=== PATIENT | female | born 1995 | race Hispanic/Latino ===

== ENCOUNTER 2019-09-08 17:37 | Emergency (ER) | payer OTHER, SELFPAY ==
[2019-09-08 17:43] VITALS: BP 158/87; PULSE 76; RESP 18; TEMP 36.9; O2SAT 98
[2019-09-08 18:13] LABS: INR 1.1 (0.9-1.3); Prothrombin Time 12.1 SECONDS (10.1-12.7)
[2019-09-08 18:16] LABS: PTT Partial Thromboplastin Tim 33 SECONDS (26.4-36.2)
[2019-09-08 18:19] LABS: Alanine Aminotransferase 11 IU/L (<35); Albumin 4.5 g/dL (3.5-5.0); Albumin Globulin Ratio 1.2 (1.0-2.8); Alkaline Phosphatase 87 U/L (38-126); Aspartate Aminotransferase 25 IU/L (14-36); Bilirubin Total 0.2 mg/dL (0.2-1.3); Blood Urea Nitrogen 13 mg/dL (7-17); Calcium 9.5 mg/dL (8.4-10.2); Carbon Dioxide 27 mmol/L (22-32); Chloride 103 mmol/L (98-107); Estimated Glomerular Filt Rate > 60.0 mL/min (>60); Globulin 3.9 g/dL (1.7-4.1); Glucose 88 mg/dL (70-100); HEMOLYSIS < 15 (0-50); Lipase 67 U/L (23-300); Potassium 3.7 mmol/L (3.4-5.1); Sodium 139 mmol/L (137-145); Total Protein 8.4 g/dL (6.3-8.2)
--- NOTE | 2019-09-08 18:23 | ED.GENADULT ---
HPI - General Adult General Chief complaint: Abdominal Pain Stated complaint: abd pain Time Seen by Provider: 09/08/19 18:06 Source: patient Mode of arrival: Ambulatory Limitations: no limitations History of Present Illness HPI narrative: 23-year-old female here for evaluation of 3 days of epigastric abdominal pain. Patient states that it started when she was eating. It has been consistent since then. Difficult for her to describe the character of the pain. No change in bowel habits. No urinary changes. No vomiting. No nausea. Has not tried anything for the symptoms prior to arrival. Not worse with movement. Potentially worse with palpation according to the patient. No fevers. Has never had any symptoms like this in the past. Related Data Allergies Allergy/AdvReac Type Severity Reaction Status Date / Time strawberry Allergy Intermediate Hives Verified 09/08/19 17:50 Review of Systems Constitutional Constitutional: Denies fever(s) and Denies headache(s) ENT Ears, Nose, Mouth, and Throat: Denies headache(s) Cardiovascular Cardiovascular: Denies chest pain and Denies dyspnea Respiratory Respiratory: Denies dyspnea Gastrointestinal Gastrointestinal: Reports abdominal pain, Denies change in stool character, Denies nausea and Denies vomiting Genitourinary Genitourinary: Denies dysuria Musculoskeletal Musculoskeletal: Denies myalgias and Denies arthralgias Integumentary/Breasts Skin/Breast: Denies lesions and Denies rash Neurologic Neurologic: Denies behavioral changes and Denies headache(s) Psychiatric Psychiatric: Denies behavioral changes Hematologic/Lymphatic Hematologic/Lymphatic: Denies easy bleeding and Denies easy bruising Patient History Medical History Healthy adult (Acute) tobacco type: smokeless tobacco alcohol intake frequency: 0-2 drinks per day Substance Use Type: does not use Exam Initial Vital Signs Initial Vital Signs: Vital Signs Temperature 98.4 F 09/08/19 17:43 Pulse Rate 76 09/08/19 17:43 Respiratory Rate 18 09/08/19 17:43 Blood Pressure 158/87 H 09/08/19 17:43 Pulse Oximetry 98 09/08/19 17:43 Const General: cooperative and comfortable Limitations: mental status not altered HENMT Head: normal to inspection and normocephalic Resp Effort & Inspection: normal respiratory effort Auscultation: clear to auscultation bilaterally Cardio Rate: regular rate Rhythm: regular rhythm GI Inspection: non-distended Palpation: soft, No firm and tender (Epigastric) Back/Spine/Pelvis Back: No CVA tenderness Skin Lesions: no lesions Rashes: no rashes Neuro General: alert and awake Cognition: normal cognition Speech: speech normal Extrem General: normal to inspection and capillary refill normal Psych Appearance: grossly normal Course Orders Ordered: ED Orders 09/08/19 17:05 Complete Blood Count AUTO DIFF Stat Comprehensive Metabolic Panel Stat Lipase Stat Partial Thromboplastin Time Stat Prothrombin Time INR Stat Discontinued Medications Al Hydrox/Mg Hydrox/Simethicone 20 ml/ Lidocaine HCl 15 ml 0 ml PO NOW ONE Stop: 09/08/19 18:23 Last Admin: 09/08/19 18:45 Dose: 30 ml Documented by: SUNITA Vital Signs Vital signs: Vital Signs - 8 hr 09/08/19 17:43 Temperature 98.4 F Pulse Rate 76 Respiratory Rate 18 Blood Pressure 158/87 H Pulse Oximetry 98 Medical Decision Making Lab Data Lab results reviewed: Yes I reviewed the patient's lab results. Result diagrams: 09/08/19 17:05 09/08/19 17:05 Labs: Lab Results 09/08/19 09/08/19 09/08/19 Range/Units 17:05 17:05 17:05 WBC 10.3 (4.5-11.0) X10^3/uL RBC 4.53 (4.0-5.2) X10^6/uL Hgb 13.7 (12.0-16.0) g/dL Hct 39.8 (36-46) % MCV 87.8 (80-100) fL MCH 30.2 (26-34) PG MCHC 34.4 (30-36) % RDW 12.8 (11.6-14.8) % Plt Count 266 (150-400) X10^3/uL Neut % (Auto) 59.2 (50-75) % Lymph % (Auto) 32.3 (25-40) % Brewster % (Auto) 6.2 (3-14) % Eos % (Auto) 1.7 L (2-4) % Baso % (Auto) 0.6 (0-2) % Neut # (Auto) 6100 (2289-6178) /uL Lymph # (Auto) 3300 (0902-2789) /uL Brewster # (Auto) 600 (0-900) /uL Eos # (Auto) 200 (0-450) /uL Baso # (Auto) 100 (0-100) /uL PT 12.1 (10.1-12.7) SECONDS INR 1.1 (0.9-1.3) APTT 33 (26.4-36.2) SECONDS Sodium 139 (137-145) mmol/L Potassium 3.7 (3.4-5.1) mmol/L Chloride 103 (98-107) mmol/L Carbon Dioxide 27 (22-32) mmol/L BUN 13 (7-17) mg/dL Creatinine 0.81 (0.52-1.04) mg/dL Estimated GFR > 60.0 (>60) mL/min BUN/Creatinine Ratio 16.0 (6-22) Glucose 88 (70-100) mg/dL Calcium 9.5 (8.4-10.2) mg/dL Total Bilirubin 0.2 (0.2-1.3) mg/dL AST 25 (14-36) IU/L ALT 11 (<35) IU/L Alkaline Phosphatase 87 (38-126) U/L Total Protein 8.4 H (6.3-8.2) g/dL Albumin 4.5 (3.5-5.0) g/dL Globulin 3.9 (1.7-4.1) g/dL Albumin/Globulin Ratio 1.2 (1.0-2.8) Lipase 67 (23-300) U/L [facility] Narrative Medical decision making narrative: Patient reports resolution of symptoms after the GI cocktail. I have low suspicion for cardiac etiology. Low suspicion for gallbladder pancreatic etiology. Low suspicion for other acute intra-abdominal surgical issues. I do suspect this is reflux disease potentially ulcers. Low suspicion for perforated ulcer given the clinical presentation. Will send home with instructions to start taking famotidine. She was given return precautions and follow-up instructions. She expressed understanding and agreement. Discharge Plan Departure Patient Disposition: Home Clinical Impression: Abdominal pain Qualifiers: Abdominal location: epigastric Qualified Code(s): R10.13 - Epigastric pain Instructions: DI for Abdominal Pain-Adult Activity Restrictions/Additional Instructions: Recommend that you start taking a medicine called Pepcid/famotidine. You can purchase this medication [id number]. Take it once a day like we discussed. Return to the emergency department for any new or worsening symptoms Referrals: Helena Durant DO [Primary Care Provider] -
[2019-09-08 18:26] LABS: Add Manual Diff / Slide Review NO; Basophils Absolute Auto 100 /uL (0-100); Basophils Percent Auto 0.6 % (0-2); Eosinophils Absolute Auto 200 /uL (0-450); Eosinophils Percent Auto 1.7 % (2-4); Hematocrit 39.8 % (36-46); Hemoglobin 13.7 g/dL (12.0-16.0); Lymphocytes Absolute Auto 3300 /uL (1100-4500); Lymphocytes Percent Auto 32.3 % (25-40); Mean Corpuscular HGB Conc 34.4 % (30-36); Mean Corpuscular Hemoglobin 30.2 PG (26-34); Mean Corpuscular Volume 87.8 fL (80-100); Monocytes Absolute Auto 600 /uL (0-900); Monocytes Percent Auto 6.2 % (3-14); Neutrophils Absolute Auto 6100 /uL (1500-7000); Neutrophils Percent Auto 59.2 % (50-75); Platelet Count 266 X10^3/uL (150-400); Red Blood Cell Count 4.53 X10^6/uL (4.0-5.2); Red Cell Distribution Width 12.8 % (11.6-14.8); White Blood Cell Count 10.3 X10^3/uL (4.5-11.0)
[2019-09-08] MEDS: MAG HYDROX/ALUMINUM/SIMETH SUS 20 ML, LIDOCAINE VISCOUS 2% 15 ML PO (18:45)
[2019-09-08 19:43] VITALS: BP 122/73; PULSE 60; RESP 14; TEMP 36.8; O2SAT 100
== END 2019-09-08 19:44 | disposition home or self-care (01) ==
PROVIDERS: Emergency Medicine; Emergency Provider Emergency Medicine; PCP Family Medicine
DX: R10.13 Epigastric pain (principal)
CPT/HCPCS: 36415; 80053; 83690; 85025; 85610; 85730; 99283; 99284

== ENCOUNTER 2023-09-21 06:23 | Day surgery (SDC) | payer OTHER, SELFPAY ==
[2023-09-17 14:22] VITALS: BMI 32.5
--- NOTE | 2023-09-21 | PATH_ITS ---
[facility] Accession Number: [id number] No. of containers..02 Tissue . 01 Material submitted: . PART A: ectocervix - ECTOCERVIX;STITCH @ 1200 PART B: endocervix - ENDOCERVICAL TOPHAT . 01 Diagnosis: A. ECTOCERVIX, LEEP: Cervical transformation zone with focal mild squamous atypia, consistent with low-grade squamous intraepithelial lesion (MARK-1). Negative for high-grade squamous intraepithelial lesion or malignancy. Endocervical and ectocervical margins appear free of MARK-1. . B. ENDOCERVIX, TOP HAT, LEEP: Endocervical mucosa with no diagnostic abnormality. Negative for squamous intraepithelial lesion or malignancy. [facility] 09/27/2023 1829 Local . 01 Electronically signed: . Lincoln Johnson MD, PhD, Pathologist NPI- [id number] . 01 Gross description: . A. Received in formalin with two identifiers and ectocervix digit 12, is an oriented circular fragment of cervix with a suture designating 12 o'clock per the requisition measuring 1.4 cm from 12 to 6, 1.2 cm from 3 to 9, and 0.6 cm thick. The ectocervix is rotiz and wrinkled with a slit-like os measuring 0.5 cm in diameter. The endocervical margin is inked orange while the remaining stromal margins are inked blue. The specimen is radially sectioned, and submitted entirely as follows: A1: 12 to 3. A2: 3 to 6. A3: 6 to 9. A4: 9 to 12. B. Received in formalin with two identifiers and endocervical top hat, is an unoriented circular fragment of cervix measuring 1.2 x 0.7 x 0.5 cm with no ectocervix identified. The concave surface is inked black while the convex surface is inked orange at the endocervical margin, and the remaining convex surface is inked green. The specimen is radially sectioned and submitted entirely in sequential quadrants in cassettes B1-B4. ([id number]) /[facility] 09/22/2023 2317 Local . 01 Pathologist provided ICD-10: N87.0 . 01 CPT . 251413, [id number] Specimen Comment: A courtesy copy of this report has been sent to [facility] Pathology Performed at: [address] [address], [place], [place] [id number] MD Arnold Sneed MD Phone: [phone]
[2023-09-21] MEDS: LACTATED RINGERS 1,000 ML 42 ML IV (07:13)
[2023-09-21 07:15] VITALS: BP 127/88; PULSE 81; RESP 18; TEMP 37; O2SAT 97; BMI 29.2
--- NOTE | 2023-09-21 07:30 | SUR.OPER ---
Lithotomy on padded OR bed, head on pillow, arms secured on padded arm boards at <90 degrees abduction. Legs secured in padded yellow fins stirrups.
--- NOTE | 2023-09-21 07:31 | PM.PREOP ---
Pre-operative Note Interval Note History & Physical reviewed/Exam performed by Physician: Yes Changes to H&P: No ASA Class (for procedural sedation): II
[2023-09-21] MEDS: ACETAMINOPHEN IV 1,000 MG/100 ML VIAL 400 MG IV (08:00)
[2023-09-21] MEDS: BUPIVACAINE 0.5% (PF) 30 ML, EPINEPHrine 0.15 MG INJ (08:05)
[2023-09-21 08:30] VITALS: BP 126/79; PULSE 91; RESP 16; TEMP 36.1; O2SAT 98
--- NOTE | 2023-09-21 08:36 | P.OP_ITS ---
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 Pt had her legs placed in Jorge stirrups and an exam under anesthesia was performed. The patient was prepped and draped in a sterile fashion.? A time out was performed.? A sterile speculum was inserted into the vagina.? The cervix was visualized and grasped anteriorly using a sin gle tooth tenaculum. Paracervical block was performed using 10cc of 0.5% marcaine with epinephrine; circumferential infiltration of cervical stroma was then performed until generous blanching noted throughout using an additional 8cc of same. The speculum was removed and replaced with insulated speculum with smoke evacuator. Lugol's solution generously applied with noted atypia at 11 o'clock position at site of prior ectocervical biopsy. LEEP performed in 2 passes; first with removal of the distal portion of the ectocervix incorporating the delineated lesion using the large loop followed by endcervical top hat using the smallest loop. The wound bed was generously burned using roller ball cautery. Hemostasis was noted. Monsel's solution applied genrously for further hemostasis prophylaxis. Speculum removed. Complications: none Post-operative Condition: stable Disposition: PACU Plan for aftercare: routine outpatient postoperative f/u as scheduled
[2023-09-21] MEDS: ONDANSETRON 4 MG/2 ML INJ IV (08:38)
[2023-09-21 08:45] VITALS: BP 134/82; PULSE 91; RESP 16; O2SAT 98
[2023-09-21 08:51] VITALS: BP 129/83; PULSE 88; RESP 16; TEMP 36.8; O2SAT 98
[2023-09-21 09:02] VITALS: BP 110/70; PULSE 70; RESP 16; TEMP 36.2; O2SAT 98
== END 2023-09-21 09:14 | disposition home or self-care (01) ==
PROVIDERS: PCP Family Medicine; Referring Provider Obstetrics & Gynecology; Visit Provider Obstetrics & Gynecology
PROC: 0UBC7ZZ Excision of Cervix, Via Natural or Artificial Opening (ICD-10-PCS; CPT 57522; principal; 2023-09-21 07:45)
DX: N87.1 Moderate cervical dysplasia (principal)
CPT/HCPCS: 57522; 81025; J0136; J0171; J1100; J1885; J2250; J2405; J2704